=== PATIENT | male | born 1970 | race Caucasian/White ===

== ENCOUNTER 2018-07-21 19:46 | Emergency (ER) | payer OTHER ==
[~2018-07-21] VITALS: Ht 167.6 cm; Wt 92.0 kg
[~2018-07-21 19:46] MED LIST: LEVO150T9 PO
[2018-07-21 19:51] VITALS: Ht 167.6 cm; Wt 92.0 kg
[2018-07-21] MEDS ORDERED: LEVO200T6 PO (22:27)
[2018-07-21] MEDS ORDERED: SITA100T11 PO (22:27)
[2018-07-21] MEDS ORDERED: GLIP5TAB13 PO (22:28)
[2018-07-21] MEDS ORDERED: METF500T24 PO (22:28)
[2018-07-21] MEDS ORDERED: ALBU8.5H8 INH (22:29)
[2018-07-21] MEDS ORDERED: PRED20TA PO (23:42)
[2018-07-21] MEDS ORDERED: VALA10004 PO (23:42)
--- NOTE | 2018-07-21 23:44 | ERD ---
ER Documentation Chief Complaint Chief Complaint LEFT SIDED FACIAL NUMBNESS & DROOP W/ LEFT EYE POTOSIS/NYSTAGMUSX 2DYS HPI This is a 47-year-old male coming with a left-sided facial droop with his left eye for the past 2 days. He says he woke up with it. Denies any muscular weakness in his arms or legs. Denies any fevers or chills. Denies any other current complaints. No sick contacts. He did have a viral URI last week but says that has since resolved ROS All systems reviewed and are negative except as per history of present illness. Medications Home Meds Active Scripts Valacyclovir HCl (Valtrex) 1,000 Mg Tablet, 1000 MG PO DAILY for 7 Days, TAB Prov:JAVIER RUFF. 07/21/18 Prednisone* (Prednisone*) 20 Mg Tab, 40 MG PO DAILY for 4 Days, TAB Prov:JAVIER RUFF. 07/21/18 Reported Medications Albuterol Sulfate* (Proair HFA*) 8.5 Gm Hfa.aer.ad, 2 PUFF INH NEEDED PRN for WHEEZING AND SOB, #1 INHALER 07/21/18 Glipizide* (Glipizide*) 5 Mg Tablet, 5 MG PO AC BREAKFAST DINNER, TAB 07/21/18 Metformin Hcl* (Metformin Hcl*) 500 Mg Tablet, 500 MG PO WITH BREAKFAST DINNE, #60 TAB 07/21/18 Sitagliptin* (Januvia*) 100 Mg Tablet, 100 MG PO DAILY, #30 TAB 07/21/18 Levothyroxine Sodium* (Levothyroxine Sodium*) 200 Mcg Tablet, 200 MCG PO BEFORE BREAKFAST, #30 TAB 07/21/18 Discontinued Reported Medications Levothyroxine Sodium (Levothroid) 150 Mcg Tablet, 188 MCG PO DAILY 07/31/13 Allergies Allergies: Coded Allergies: No Known Drug Allergies (Verified Allergy, Unknown, 07/21/18) PMhx/Soc History of Surgery: Yes (cholecystectomy, appendectomy) Anesthesia Reaction: No Hx Neurological Disorder: No Hx Respiratory Disorders: Yes (ASTHMA ) Hx Cardiac Disorders: No Hx Psychiatric Problems: No Hx Miscellaneous Medical Probl: No (thyroid radiation,DM,HTN,HYPOTHYROIDISM) Hx Alcohol Use: Yes ("occassionally") Hx Substance Use: No Hx Tobacco Use: No Smoking Status: Never smoker Physical Exam Vitals Vital Signs Date Temp Pulse Resp B/P (MAP) Pulse Ox O2 O2 Flow FiO2 Time Delivery Rate 07/21/18 63 17 172/102 100 Room Air 22:25 (125) 07/21/18 97.6 75 18 179/89 97 19:51 (119) Physical Exam Const: No acute distress Head: Atraumatic Eyes: Normal Conjunctiva ENT: Normal External Ears, Nose and Mouth. Neck: Full range of motion. No meningismus. Resp: Clear to auscultation bilaterally Cardio: Regular rate and rhythm, no murmurs Abd: Soft, non tender, non distended. Normal bowel sounds Skin: No petechiae or rashes Back: No midline or flank tenderness Ext: No cyanosis, or edema Neur: Awake and alert Psych: Normal Mood and Affect Result Diagram: 07/21/18223907/21/182239 Results 24 hrs Laboratory Tests Test 07/21/18 22:40 White Blood Count 9.3 10^3/ul Red Blood Count 4.61 10^6/ul Hemoglobin 14.7 g/dl Hematocrit 42.1 % Mean Corpuscular Volume 91.3 fl Mean Corpuscular Hemoglobin 31.9 pg Mean Corpuscular Hemoglobin Concent 34.9 g/dl Red Cell Distribution Width 12.4 % Platelet Count 255 10^3/UL Mean Platelet Volume 10.3 fl Immature Granulocytes % 1.200 % Neutrophils % 50.5 % Lymphocytes % 36.8 % Monocytes % 7.2 % Eosinophils % 3.5 % Basophils % 0.8 % Nucleated Red Blood Cells % 0.0 /100WBC Immature Granulocytes # 0.110 10^3/ul Neutrophils # 4.7 10^3/ul Lymphocytes # 3.4 10^3/ul Monocytes # 0.7 10^3/ul Eosinophils # 0.3 10^3/ul Basophils # 0.1 10^3/ul Nucleated Red Blood Cells # 0.0 10^3/ul Prothrombin Time 12.8 Sec Prothrombin Time Ratio 1.0 INR International Normalized Ratio 0.95 Activated Partial Thromboplast Time 28.1 Sec Urine Color YELLOW Urine Clarity CLEAR Urine pH 5.0 Urine Specific [employer] 1.023 Urine Ketones NEGATIVE mg/dL Urine Nitrite NEGATIVE mg/dL Urine Bilirubin NEGATIVE mg/dL Urine Urobilinogen NEGATIVE mg/dL Urine Leukocyte Esterase NEGATIVE Rosanne/ul Urine Hemoglobin NEGATIVE mg/dL Urine Glucose NEGATIVE mg/dL Urine Total Protein NEGATIVE mg/dl Sodium Level 136 mmol/L Potassium Level 4.0 mmol/L Chloride Level 98 mmol/L Carbon Dioxide Level 28 mmol/L Anion Gap 10 Blood Urea Nitrogen 15 mg/dl Creatinine 1.11 mg/dl Est Glomerular Filtrat Rate mL/min > 60 mL/min Glucose Level 107 mg/dl Calcium Level 9.6 mg/dl Total Bilirubin 0.4 mg/dl Direct Bilirubin 0.00 mg/dl Indirect Bilirubin 0.4 mg/dl Aspartate Amino Transf (AST/SGOT) 53 IU/L Alanine Aminotransferase (ALT/SGPT) 95 IU/L Alkaline Phosphatase 58 IU/L Troponin I < 0.012 ng/ml Total Protein 8.5 g/dl Albumin 4.8 g/dl Globulin 3.70 g/dl Albumin/Globulin Ratio 1.29 Triglycerides Level 234 mg/dl Cholesterol Level 230 mg/dl LDL Cholesterol, Calculated 130 mg/dl HDL Cholesterol 53 mg/dl Cholesterol/HDL Ratio 4.3 RATIO Urine Opiates Screen Pending Urine Barbiturates Pending Urine Amphetamines Screen Negative Urine Benzodiazepines Screen Negative Urine Cocaine Screen Negative Urine Cannabinoids Pending Procedures/MDM EKG: Rate/Rhythm: [Normal Sinus Rhythm] QRS, ST, T-waves: [No changes consistent w/ acute ischemia] Impression: [No evidence of ischemia or arrhythmia] Chest X-ray 1V Interpreted by me: Soft Tissue: No acute abnormalities Bones: No acute abnormalities Mediastinum/Cardiac Silhouette/Lungs: [No acute abnormalities] Medical decision makin-year-old male with evidence of Gordon's palsy. At this point clinically stable will be discharged on prednisone and valacyclovir. Told to use natural tears to keep his eye lubricated to follow-up with primary care physician. Departure Diagnosis: Primary Impression: Gordon's palsy Condition: Stable Patient Instructions: Gordon's Palsy JAVIER RUFF Jul 21, 2018 23:44
[2018-07-22 00:05] VITALS: BP 144/86; PULSE 64; RESP 14
== END 2018-07-22 00:05 | disposition home or self-care (01) ==
LOC: E/R 19:46
DX: G51.0 Bell's palsy (principal); E11.9 Type 2 diabetes mellitus without complications; I10 Essential (primary) hypertension; E03.9 Hypothyroidism, unspecified; J45.909 Unspecified asthma, uncomplicated; R07.9 Chest pain, unspecified; Z79.84 Long term (current) use of oral hypoglycemic drugs
CPT/HCPCS: 36415; 70450; 71045; 80053; 80061; 80307; 81003; 83036; 84484; 85025; 85610; 85730; 93005; Z7502

== ENCOUNTER 2018-10-11 00:18 | Emergency (ER) | payer OTHER ==
[~2018-10-11] VITALS: Ht 167.6 cm; Wt 90.0 kg
[~2018-10-11 00:18] MED LIST changes: +ALBU8.5H8 INH; +GLIP5TAB13 PO; -LEVO150T9 PO; +LEVO200T6 PO; +METF500T24 PO; +PRED20TA PO; +SITA100T11 PO; +VALA10004 PO
[2018-10-11 00:37] VITALS: Ht 167.6 cm; Wt 90.0 kg
[2018-10-11] MEDS ORDERED: ASPIRIN 325 MG TAB PO ONE (02:00)
[2018-10-11] MEDS ORDERED: NITROGLYCERIN (SL) 0.4 MG TAB SL ONE (03:30)
--- NOTE | 2018-10-11 04:38 | ERD ---
ER Documentation Chief Complaint Chief Complaint CP started 2330 c/o pressure radiating to L arm HPI This is a 48-year-old male who presents for evaluation of chest pain earlier today. His pain radiates his left arm, has been going on and off. He denies any tobacco history, the pain is nonexertional, he has no cardiac history, and no prior medical problems aside from hypertension. Patient did not take aspirin prior to coming. He did not have any shortness of breath, he has not had any leg swelling, he has no history of coagulopathy. ROS All systems reviewed and are negative except as per history of present illness. Medications Home Meds Active Scripts valACYclovir HCl (Valtrex) 1,000 Mg Tablet, 1000 MG PO DAILY for 7 Days, TAB Prov:JAVIER RUFF 07/21/18 Prednisone* (Prednisone*) 20 Mg Tab, 40 MG PO DAILY for 4 Days, TAB Prov:JAVIER RUFF. 07/21/18 Reported Medications Albuterol Sulfate* (Proair HFA*) 8.5 Gm Hfa.aer.ad, 2 PUFF INH NEEDED PRN for WHEEZING AND SOB, #1 INHALER 07/21/18 Glipizide* (Glipizide*) 5 Mg Tablet, 5 MG PO AC BREAKFAST DINNER, TAB 07/21/18 Metformin Hcl* (Metformin Hcl*) 500 Mg Tablet, 500 MG PO WITH BREAKFAST DINNE, #60 TAB 07/21/18 Sitagliptin* (Januvia*) 100 Mg Tablet, 100 MG PO DAILY, #30 TAB 07/21/18 Levothyroxine Sodium* (Levothyroxine Sodium*) 200 Mcg Tablet, 200 MCG PO BEFORE BREAKFAST, #30 TAB 07/21/18 Allergies Allergies: Coded Allergies: No Known Drug Allergies (Verified Allergy, Unknown, 07/21/18) PMhx/Soc History of Surgery: Yes (cholecystectomy, appendectomy) Anesthesia Reaction: No Hx Neurological Disorder: No Hx Respiratory Disorders: Yes (ASTHMA ) Hx Cardiac Disorders: Yes (HTN) Hx Psychiatric Problems: No Hx Miscellaneous Medical Probl: Yes (DM, HYPOTHYROIDISM) Hx Alcohol Use: Yes ("occassionally") Hx Substance Use: No Hx Tobacco Use: No Smoking Status: Former smoker Physical Exam Vitals Vital Signs Date Temp Pulse Resp B/P (MAP) Pulse Ox O2 O2 Flow FiO2 Time Delivery Rate 10/11/18 97.9 72 16 158/89 99 Room Air 04:50 (112) 10/11/18 75 16 154/86 99 Room Air 03:10 (108) 10/11/18 98.0 90 18 163/95 100 Nasal 2.0 01:10 (117) Cannula 10/11/18 98.8 86 16 199/93 99 00:37 (128) Physical Exam Const: No acute distress Head: Atraumatic Eyes: Normal Conjunctiva ENT: Normal External Ears, Nose and Mouth. Neck: Full range of motion. No meningismus. Resp: Clear to auscultation bilaterally Cardio: Regular rate and rhythm, no murmurs, no JVD Abd: Soft, non tender, non distended. Normal bowel sounds Skin: No petechiae or rashes Back: No midline or flank tenderness Ext: No cyanosis, or edema Neur: Awake and alert Psych: Normal Mood and Affect Result Diagram: 10/11/1810610/11/18106 Results 24 hrs Laboratory Tests Test 10/11/18 01:07 10/11/18 03:54 White Blood Count 8.2 10^3/ul Red Blood Count 4.31 10^6/ul Hemoglobin 13.4 g/dl Hematocrit 39.1 % Mean Corpuscular Volume 90.7 fl Mean Corpuscular Hemoglobin 31.1 pg Mean Corpuscular Hemoglobin Concent 34.3 g/dl Red Cell Distribution Width 11.9 % Platelet Count 250 10^3/UL Mean Platelet Volume 10.7 fl Immature Granulocytes % 0.900 % Neutrophils % 48.3 % Lymphocytes % 37.5 % Monocytes % 8.7 % Eosinophils % 4.0 % Basophils % 0.6 % Nucleated Red Blood Cells % 0.0 /100WBC Immature Granulocytes # 0.070 10^3/ul Neutrophils # 4.0 10^3/ul Lymphocytes # 3.1 10^3/ul Monocytes # 0.7 10^3/ul Eosinophils # 0.3 10^3/ul Basophils # 0.1 10^3/ul Nucleated Red Blood Cells # 0.0 10^3/ul Sodium Level 138 mmol/L Potassium Level 4.1 mmol/L Chloride Level 99 mmol/L Carbon Dioxide Level 24 mmol/L Anion Gap 15 Blood Urea Nitrogen 20 mg/dl Creatinine 0.94 mg/dl Est Glomerular Filtrat Rate mL/min > 60 mL/min Glucose Level 190 mg/dl Calcium Level 9.6 mg/dl Total Bilirubin 0.2 mg/dl Direct Bilirubin 0.00 mg/dl Indirect Bilirubin 0.2 mg/dl Aspartate Amino Transf (AST/SGOT) 42 IU/L Alanine Aminotransferase (ALT/SGPT) 63 IU/L Alkaline Phosphatase 57 IU/L Troponin I < 0.012 ng/ml < 0.012 ng/ml B-Type Natriuretic Peptide 27 PG/ML Total Protein 7.7 g/dl Albumin 4.5 g/dl Globulin 3.20 g/dl Albumin/Globulin Ratio 1.40 Current Medications Medications Dose Sig/Clarisa Start Time Status Last (Trade) Ordered Route PRN Stop Time Admin Dose Reason Admin Aspirin 325 mg ONCE ONCE 10/11/18 DC 10/11/18 (Aspirin) PO 02:00 01:41 10/11/18 02:01 1 tab ONCE ONCE 10/11/18 DC Nitroglycerin SL 03:30 10/11/18 03:31 (Nitroglyceri n (Sl Tab) 0.4 Mg) Procedures/MDM 48-year-old male presents for evaluation of chest pain. Patient presented well- appearing and nontoxic, his EKG showed no acute signs of ischemia. I have a low suspicion for aortic dissection, his chest x-ray was unremarkable, or pulmonary embolism, primary consideration was acute coronary syndrome. Based on his heart score, the patient is low risk, with hypertension and male sex as his main risk factors. I offered admission, after resulting his first troponin which is negative, patient declined, and wished to be managed as an outpatient, a second troponin was ordered which was also negative, I discussed the importance of obtaining follow-up as soon as possible, to evaluate for possible stress test. The patient agreed to this, at discharge he was in no acute distress. EKG: Rate/Rhythm: Normal Sinus Rhythm QRS, ST, T-waves: No changes consistent w/ acute ischemia Impression: No evidence of ischemia or arrhythmia Departure Diagnosis: Primary Impression: Chest pain Chest pain type: unspecified Qualified Codes: R07.9 - Chest pain, unspecified Condition: Stable Patient Instructions: Chest Pain, Uncertain Cause Additional Instructions: Call your primary care doctor TOMORROW for an appointment during the next 1-2 days.See the doctor sooner or return here if your condition worsens before your appointment time. Make sure you follow-up with your primary care doctor soon as possible to evaluate for any cardiac problems. DERICK GRACE MD Oct 11, 2018 04:38
[2018-10-11 04:50] VITALS: BP 158/89; PULSE 72; RESP 16
== END 2018-10-11 04:59 | disposition home or self-care (01) ==
LOC: E/R 00:18
DX: R07.9 Chest pain, unspecified (principal); I10 Essential (primary) hypertension; E11.9 Type 2 diabetes mellitus without complications; E03.9 Hypothyroidism, unspecified; J45.909 Unspecified asthma, uncomplicated; Z79.84 Long term (current) use of oral hypoglycemic drugs; Z87.891 Personal history of nicotine dependence
CPT/HCPCS: 71045; 80053; 83880; 84484; 85025; 93005; Z7502; Z7610